=== PATIENT | female | born 1945 | race Caucasian/White ===

== ENCOUNTER → 2017-11-21 | Outpatient (CLI) | payer MEDICARE | LOC: M.RAD 10:23 | DX: Z12.31 Encounter for screening mammogram for malignant neoplasm of breast (principal) ==

== ENCOUNTER → 2019-01-21 | Outpatient (CLI) | payer MEDICARE | LOC: M.RAD 09:51 | DX: Z12.31 Encounter for screening mammogram for malignant neoplasm of breast (principal) ==

== ENCOUNTER 2019-08-30 14:08 | Inpatient (IN) | payer MEDICARE ==
[~2019-08-30] VITALS: Ht 172.7 cm; Wt 84.7 kg
[2019-08-30 14:17] VITALS: BP 149/72
[2019-08-30] MEDS ORDERED: CALCIUM 600 +1 EA17 PO (14:24)
[2019-08-30] MEDS ORDERED: MULTIVITAMINS1 EAC7 PO (14:24)
[2019-08-30] MEDS ORDERED: D3 DOTS2000 UNIT PO (14:25)
[2019-08-30] MEDS ORDERED: SERTRALINE HCL100 MG PO (14:25)
[2019-08-30] MEDS ORDERED: CLONAZEPAM 0.50.5 M1 PO (14:25)
[2019-08-30] MEDS ORDERED: PROBIOTIC1 EAC7 PO (14:25)
[2019-08-30] MEDS ORDERED: BUTALB-APAP-CA1 EACH PO (14:25)
[2019-08-30] MEDS ORDERED: PROTONIX40 M2 PO (14:25)
[2019-08-30] MEDS ORDERED: ZETIA10 MG PO (14:26)
[2019-08-30] MEDS ORDERED: SUMATRIPTAN SU100 MG PO (14:26)
[2019-08-30] MEDS ORDERED: FLONASE 0.05%50 MCG NARES (14:26)
[2019-08-30] MEDS ORDERED: PROAIR HFA8.5 GM INH (14:26)
[2019-08-30] MEDS ORDERED: CLARITIN-D 121 EAC1 PO (14:26)
[2019-08-30] MEDS ORDERED: ADVAIR 100-501 EACH INH (14:27)
[2019-08-30] MEDS ORDERED: SINGULAIR 10 MG10 MG PO (14:27)
[2019-08-30 14:39] LABS: ABSOLUTE BASOPHILS 0.1 thou/uL (0.0-0.2); ABSOLUTE EOSINOPHILS 0.3 thou/uL (0.0-0.7); ABSOLUTE LYMPHOCYTES 2.7 thou/uL (0.8-5.3); ABSOLUTE MONOCYTES 0.7 thou/uL (0.0-1.2); ABSOLUTE NEUTROPHILS 6.2 thou/uL (1.6-8.1); BASOPHILS 0.6 %; EOSINOPHILS 3.2 %; HEMOGLOBIN 12.2 gm/dL (12.0-15.0); LYMPHOCYTES 27.3 %; MCH 30.1 pg (26.0-34.0); MCHC 33.8 g/dL (28.0-37.0); MCV 89.2 fL (80.0-100.0); MONOCYTES 6.6 %; MPV 7.1 fl. (7.2-11.1); NUCLEATED RBCS 0 /100WBC; PLATELET COUNT* 367 thou/uL (150-400); POLYS 62.3 %; RBC 4.04 mil/uL (4.20-5.00); RDW-CV 13.6 % (10.5-14.5)
[2019-08-30 14:44] LABS: CALCIUM 9.3 mg/dL (8.5-10.1); POTASSIUM 3.5 mmol/L (3.5-5.1)
[2019-08-30 14:55] LABS: ALBUMIN 3.7 g/dL (3.4-5.0); MAGNESIUM 1.7 mg/dL (1.8-2.4); TOTAL BILIRUBIN 0.4 mg/dL (<0.1-1.0); TOTAL PROTEIN 6.9 g/dL (6.4-8.2)
[2019-08-30 17:33] VITALS: BP 147/71
[2019-08-30 18:25] VITALS: BP 146/63
--- NOTE | 2019-08-30 18:48 | NUR ---
PATIENT ARRIVED TO 225 PER CART THIS EVENING FROM ER. PATIENT IS ALERT AND ORIENTED X 4. SHE STATES HER PAIN IS A 3 TO 4 WITH DEEP BREATHS. PATIENT'S O2 SATS ARE WNL. PATIENT PLACED ON TELE MONITOR. TELE SHOWS NSR. PATIENT ORIENTED TO ROOM AND CALL LIGHT. INSTRUCTED ON FALL PROTOCAL. PATIENT IS RESTING AT THIS TIME. WILL REPORT TO DIE INSPECTOR.
[2019-08-30 20:00] VITALS: BP 144/79
[2019-08-31] VITALS: BP 149/94
[2019-08-31 04:00] VITALS: BP 132/55
--- NOTE | 2019-08-31 04:56 | NUR ---
ASSUMED CARE OF PT AFTER REPORT AT 1930. PT A&OX4. VSS. PHYSICAL ASSESSMENT COMPLETED AND CHARTED. PT COMPLAINED OF SOB AMD LEFT BACK PAIN RADIATING TO FRONT RIB-DR CAMPOS MADE AWARE WITH NEW ORDERS. PLACED PT ON O2 AT 2L NC. PT UPADLIB TO RESTROOM. PT ABLE TO SLEEP WELL ON BED. CALL LIGHT WITHIN REACH.
[2019-08-31 09:01] VITALS: BP 128/60
--- NOTE | 2019-08-31 11:30 | NUR ---
MET WITH PT TO DISCUSS HOME SITUATION/DC PLANNING. PT LIVES IN HOME WITH HER 97Y/O MOTHER WHO SHE CARES FOR PT. PT IS NORMALLY INDEPENDENT AND ACTIVE. HAD KNEE SURGERY IN PAST AND HAD HH WITH [facility] AND WENT TO OUTPT AT [facility]. PT DENIES ANY DC NEEDS AT THIS TIME. WAS ASKED BY TO CHECK ON XARELTO VS JAYLIN COST, CALLED INTO [facility] [address], AWAITING CALL BACK. [phone]
[2019-08-31 12:00] VITALS: BP 118/55
[2019-08-31 16:30] VITALS: BP 133/71
--- NOTE | 2019-08-31 16:56 | 2DMMODE ---
[place] [address] 2 D/M-MODE ECHOCARDIOGRAM Name: SERGIO WEAVER Room: [address] IN [facility]#: [id number] Admission: 08/30/19 Attend Phys: Dk Toussaint Discharge: Date of : 49 Date of Service: 08/31/19 1656 Report #: [id number] THIS REPORT FOR: //name// APPROVED REPORT Study performed: 08/31/2019 09:23:03 EXAM: Comprehensive 2D, Doppler, and color-flow Echocardiogram Patient Location: In-Patient Room #: [facility] BSA: 1.95 HR: 91 bpm BP: 132/55 mmHg Other Information Study Quality: Good Indications Pulmonary Embolism 2D Dimensions IVSd: 11.24 (7-11mm) LVOT Diam: 20.89 (18-24mm) LVDd: 36.11 mm PWd: 9.36 (7-11mm) Ascending Ao: 24.88 (22-36mm) LVDs: 22.27 (25-40mm) Aortic Root: 27.11 mm Volumes Left Atrial Volume (Systole) LA ESV Index: 11.30 mL/m2 Aortic Valve AoV Peak Melo.: 1.65 m/s AO Peak Gr.: 10.89 mmHg LVOT Max P.18 mmHg AO Mean Gr.: 5.86 mmHg LVOT Mean P.77 mmHg LVOT Max V: 1.43 m/s AO V2 VTI: 28.58 cm LVOT Mean V: 0.88 m/s MANAV (VTI): 3.01 cm2 LVOT V1 VTI: 25.07 cm Mitral Valve E/A Ratio: 0.81 MV Decel. Time: 223.77 ms MV E Max Melo.: 0.66 m/s MV PHT: 64.89 [place] [address] 2 D/M-MODE ECHOCARDIOGRAM Name: SERGIO WEAVER Room: [address] IN .R.#: [id number] Admission: 08/30/19 Attend Phys: Dk Toussaint Discharge: Date of : 49 Date of Service: 08/31/19 1656 Report #: [id number] MVA (PHT): 3.39 cm2 TDI E/Lateral E': 8.25 E/Medial E': 8.25 Medial E' Melo.: 0.08 m/s Lateral E' Melo.: 0.08 m/s Pulmonary Valve PV Peak Melo.: 1.32 m/s PV Peak Gr.: 6.94 mmHg Tricuspid Valve RAP Estimate: 5.00 mmHg TR Peak Gr.: 34.42 mmHg RVSP: 39.42 mmHg PA Pressure: 39.42 mmHg Left Ventricle The left ventricle is normal size. There is normal LV segmental wall motion. There is normal left ventricular wall thickness. Left ventricular systolic function is normal. The left ventricular ejection fraction is within the normal range. LVEF is 65%. Grade I - abnormal relaxation pattern. Right Ventricle The right ventricle is normal size. The right ventricular systolic function is normal. Atria The left atrium size is normal. The right atrium size is normal. Aortic Valve The aortic valve is normal in structure. No aortic regurgitation is present. There is no aortic valvular stenosis. Mitral Valve The mitral valve is normal in structure. There is no mitral valve regurgitation noted. No evidence of mitral valve stenosis. Tricuspid Valve The tricuspid valve is normal in structure. Mild tricuspid regurgitation. Pulmonic Valve The pulmonary valve is normal in structure. There is no pulmonic [place] [address] 2 D/M-MODE ECHOCARDIOGRAM Name: WEAVERSERGIO Daniele Room: [address] IN [facility]#: [id number] Admission: 08/30/19 Attend Phys: Dk Toussaint Discharge: Date of : 49 Date of Service: 08/31/19 1656 Report #: [id number] Great Vessels The aortic root is normal in size. IVC is normal in size and collapses >50% with inspiration. Pericardium There is no pericardial effusion. <Conclusion> The left ventricle is normal size. There is normal left ventricular wall thickness. Left ventricular systolic function is normal. The left ventricular ejection fraction is within the normal range. LVEF is 65%. Grade I - abnormal relaxation pattern. The right ventricle is normal size. The left atrium size is normal. The aortic valve is normal in structure. The mitral valve is normal in structure. The tricuspid valve is normal in structure. Mild tricuspid regurgitation. IVC is normal in size and collapses >50% with inspiration. There is no pericardial effusion. There is normal LV segmental wall motion. <ELECTRONICALLY SIGNED> By: Andi Martin MD, FACC 08/31/19 165 [id number] 55 Andi Martin MD, FACC /INF
--- NOTE | 2019-08-31 17:58 | EKG ---
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 08/31/19 1758 1415 1415 Shekhar Shahid MD, FACC /EPI
--- NOTE | 2019-08-31 18:19 | NUR ---
PT A&Ox4. VITALS STABLE. IV PATENT. UP AD DARON. SOME PAIN UNDER THE BREAST AND A HEADACHE, PARTIALLY CONTROLLED WITH MEDS. ON 2LOX. SR. EF OF 65%. DENIED N/V. CALL LIGHT WITHIN REACH. WILL CONTINUE TO MONITOR.
[2019-08-31 20:15] VITALS: BP 148/68
[2019-09-01] VITALS: BP 166/80
[2019-09-01 04:00] VITALS: BP 126/57
[2019-09-01 08:00] VITALS: BP 120/67
--- NOTE | 2019-09-01 10:21 | NUR ---
RECEIVED REPORT AND ASSUMED CARE AT 1900. VSS. CARDIAC MONITORING IN PLACE. PT DENIES COMPLAINTS OF PAIN. ASSESSMENT COMPLETED CHARTED. BED LOCKED IN LOWEST POSITION, CALL LIGHT WITHIN REACH. PT UP AD DARON, ON RA. HOURLY ROUNDING COMPLETED AND ALL NEEDS MET. NO ACUTE CHANGES THROUGH THE NIGHT.
--- NOTE | 2019-09-01 10:46 | NUR ---
MET WITH PT, DISCUSSED COST OF XARELTO/ELIQUIS PT AGREEABLE TO XARELTO, HAS TAKEN IT IN THE PAST. GAVE DISCOUNT CARD FOR 1ST MONTH SCRIPT. PT STATES FEELIHG IMPROVED, DENIES OTHER NEEDS
[2019-09-01] MEDS ORDERED: LEVAQUIN 500 M500 M3 PO (11:27)
[2019-09-01] MEDS ORDERED: XARELTO1 EACH PO (11:27)
[2019-09-01 11:35] VITALS: BP 120/67
[2019-09-01 11:42] VITALS: BP 122/72
--- NOTE | 2019-09-01 13:11 | NUR ---
IV AND TELE DISCONTINUED PT UNDERSTANDS ALL FOLLOW UP ORDERS. WILL DISCHARGE TO HOME.
== END 2019-09-01 13:20 | disposition home or self-care (01) | DRG 177 ==
LOC: M.ERS 14:08 → M.2W 16:31 → M.TBA-ER 16:31 → M.2W 17:43
PROVIDERS: Emergency Medicine Emergency Medical Services; ADMIT Internal Medicine
DX: J15.6 Pneumonia due to other Gram-negative bacteria (principal); I26.99 Other pulmonary embolism without acute cor pulmonale; J96.01 Acute respiratory failure with hypoxia; E78.00 Pure hypercholesterolemia, unspecified; G43.909 Migraine, unspecified, not intractable, without status migrainosus; K21.9 Gastro-esophageal reflux disease without esophagitis; J45.909 Unspecified asthma, uncomplicated; F41.9 Anxiety disorder, unspecified; F32.9 Major depressive disorder, single episode, unspecified; Z96.651 Presence of right artificial knee joint; Z79.899 Other long term (current) drug therapy; Z88.1 Allergy status to other antibiotic agents; Z88.2 Allergy status to sulfonamides

== ENCOUNTER → 2020-03-14 | Outpatient (CLI) | payer MEDICARE ==
[~2020-03-14] MED LIST: ADVAIR 100-501 EACH INH; BUTALB-APAP-CA1 EACH PO; CALCIUM 600 +1 EA17 PO; CLARITIN-D 121 EAC1 PO; CLONAZEPAM 0.50.5 M1 PO; D3 DOTS2000 UNIT PO; FLONASE 0.05%50 MCG NARES; LEVAQUIN 500 M500 M3 PO; MULTIVITAMINS1 EAC7 PO; PROAIR HFA8.5 GM INH; PROBIOTIC1 EAC7 PO; PROTONIX40 M2 PO; SERTRALINE HCL100 MG PO; SINGULAIR 10 MG10 MG PO; SUMATRIPTAN SU100 MG PO; XARELTO1 EACH PO; ZETIA10 MG PO
[2020-03-14 11:15] LABS: ALBUMIN 3.8 g/dL (3.4-5.0); ALKALINE PHOSPHATASE 68 U/L (46-116); ANION GAP 6 mmol/L (7-16); BUN 18 mg/dL (7-18); CALCIUM 9.2 mg/dL (8.5-10.1); CHLORIDE 102 mmol/L (98-107); CHOLESTEROL 221 mg/dL (<200); CO2 30 mmol/L (21-32); CREATININE 1.1 mg/dL (0.6-1.3); GLUCOSE 94 mg/dL (70-99); HDL CHOLESTEROL 81 mg/dL (>40); LDL CHOLESTEROL 103 mg/dL (<100); POTASSIUM 4.4 mmol/L (3.5-5.1); SERUM ASSESSMENT Clear; SGOT 25 U/L (15-37); SGPT 26 U/L (30-65); SODIUM 138 mmol/L (136-145); TC:HDL 2.7 Ratio (Not establshd); TOTAL BILIRUBIN 0.4 mg/dL (<0.1-1.0); TOTAL PROTEIN 7.1 g/dL (6.4-8.2); TRIGLYCERIDE 188 mg/dL (<150); VLDL 38 mg/dL (<40)
== END ==
LOC: M.LAB 10:30 → M.CT 11:00
PROVIDERS: Family Medicine
DX: E78.5 Hyperlipidemia, unspecified (principal); I26.99 Other pulmonary embolism without acute cor pulmonale

== ENCOUNTER → 2020-03-15 | Outpatient (CLI) | payer MEDICARE | LOC: M.CT 09:58 → M.LAB 09:58 → M.CT 11:30 | DX: J43.8 Other emphysema (principal); J98.4 Other disorders of lung; I26.99 Other pulmonary embolism without acute cor pulmonale ==

== ENCOUNTER → 2020-07-21 | Outpatient (CLI) | payer MEDICARE | LOC: M.RAD 14:03 | PROVIDERS: ATTEND Family Medicine | DX: Z12.31 Encounter for screening mammogram for malignant neoplasm of breast (principal); M81.0 Age-related osteoporosis without current pathological fracture; Z13.820 Encounter for screening for osteoporosis ==

== ENCOUNTER → 2021-08-08 | Outpatient (CLI) | payer MEDICARE | LOC: M.RAD 14:01 | PROVIDERS: ATTEND Family Medicine | DX: Z12.31 Encounter for screening mammogram for malignant neoplasm of breast (principal) ==

== ENCOUNTER 2021-08-24 10:43 | Inpatient (IN) | payer MEDICARE ==
[~2021-08-24] VITALS: Ht 172.7 cm; Wt 86.2 kg
[2021-08-24 11:09] VITALS: BP 142/77
[2021-08-24 14:14] LABS: HEMATOCRIT 41.7 % (37.0-47.0); HEMOGLOBIN 13.7 gm/dL (12.0-15.0); MCH 30.3 pg (26.0-34.0); MCHC 32.8 g/dL (28.0-37.0); MCV 92.3 fL (80.0-100.0); MPV 6.7 fl. (7.2-11.1); NUCLEATED RBCS 0 /100WBC; PLATELET COUNT* 310 thou/uL (150-400); RBC 4.52 mil/uL (4.20-5.00); RDW-CV 12.6 % (10.5-14.5); WBC 10.4 thou/uL (4.0-11.0)
[2021-08-24 14:22] LABS: CALCIUM 9.1 mg/dL (8.5-10.1); POTASSIUM 4.1 mmol/L (3.5-5.1)
[2021-08-24 14:26] LABS: ALBUMIN 3.3 g/dL (3.4-5.0); TOTAL BILIRUBIN 0.4 mg/dL (<0.1-1.0); TOTAL PROTEIN 6.6 g/dL (6.4-8.2)
[2021-08-24 14:48] LABS: ABSOLUTE BASOPHILS 0.2 thou/uL (0.0-0.2); ABSOLUTE EOSINOPHILS 0.5 thou/uL (0.0-0.7); ABSOLUTE LYMPHOCYTES 3.3 thou/uL (0.8-5.3); ABSOLUTE MONOCYTES 0.7 thou/uL (0.0-1.2); ABSOLUTE NEUTROPHILS 5.6 thou/uL (1.6-8.1); PLATELET ESTIMATE ADEQUATE
--- NOTE | 2021-08-24 15:35 | EKG ---
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1945 Requested By: Elian Grant Order Number: [id number] MD: Shekhar Shahid Measurements Intervals [place] Rate: 87 P: 83 [place]: 163 QRS: -28 QRSD: 113 T: 93 QT: 372 QTc: 448 Interpretive Statements Sinus rhythm Borderline intraventricular conduction delay Borderline repolarization abnormality Minimal ST elevation, anterior leads Compared to ECG 08/30/2019 14:15:21 Left ventricular hypertrophy no longer present Electronically Signed On 08-24-2021 15:35:14 CDT by Shekhar Shahid [email or web address] <ELECTRONICALLY SIGNED> By: Shekhar Shahid MD, FACC 08/24/21 1535 1452 1452 Shekhar Shhaid MD, FAC /EPI
[2021-08-24 19:45] VITALS: BP 152/71
[2021-08-24 20:09] VITALS: BP 144/72
[2021-08-25 00:46] VITALS: BP 120/64
[2021-08-25 04:28] LABS: HEMATOCRIT 36.4 % (37.0-47.0); MCH 30.3 pg (26.0-34.0); MCHC 32.9 g/dL (28.0-37.0); MCV 92.1 fL (80.0-100.0); RBC 3.95 mil/uL (4.20-5.00); RDW-CV 12.7 % (10.5-14.5); WBC 8.5 thou/uL (4.0-11.0)
[2021-08-25 04:45] VITALS: BP 149/80
[2021-08-25 04:45] LABS: CALCIUM 7.6 mg/dL (8.5-10.1); CREATININE 1.1 mg/dL (0.6-1.3); POTASSIUM 3.9 mmol/L (3.5-5.1)
--- NOTE | 2021-08-25 07:01 | NUR ---
PT IS ABLE TO COMMUNICATE HER NEEDS TO STAFF EFFECTIVELY. SHE HAS DENIED THE NEED FOR PAIN MEDICATION UP TO THIS TIME.
[2021-08-25 09:00] VITALS: BP 107/62
--- NOTE | 2021-08-25 10:23 | NUR ---
CM ASSESSMENT: PT A&O, INDEPENDENT WITH ADL'S, AND ACTIVE. PT RESIDES AT HOME AND HER MOTHER LIVES WITH HER. PT USES 0 DME. PT HAS PAST HX OF HH WITH [facility]. PT HAS 0 HX OF SNF. NO CM D/C PLANNING NEEDS ANTICIPATED AT THIS TIME. CM WILL REMAIN AVAILABLE TO ASSIST AND FOLLOW NEEDED.
[2021-08-25 12:00] VITALS: BP 128/59
--- NOTE | 2021-08-25 13:29 | 2DMMODE ---
[place] [address] 2 D/M-MODE ECHOCARDIOGRAM Name: WEAVERSERGIO K Room: [address] ADM IN M.R.#: [id number] Admission: 08/24/21 Attend Phys: Dk Toussaint Discharge: Date of : 49 Date of Service: 08/25/21 1329 Report #: [id number] THIS REPORT FOR: cc: Samir Worley MD, Bruce D. MD Blick, David R. MD [facility] ~ APPROVED REPORT Study performed: 08/25/2021 10:28:17 EXAM: Comprehensive 2D, Doppler, and color-flow Echocardiogram BSA: 1.95 HR: 82 bpm BP: 149/80 mmHg Other Information Study Quality: Adequate Indications Pulmonary Embolism 2D Dimensions IVSd: 12.75 (7-11mm) LVOT Diam: 17.93 (18-24mm) LVDd: 39.80 mm PWd: 10.06 (7-11mm) Ascending Ao: 27.08 (22-36mm) LVDs: 29.82 (25-40mm) Aortic Root: 28.62 mm Volumes Left Atrial Volume (Systole) LA ESV Index: 17.30 mL/m2 Aortic Valve AoV Peak Melo.: 1.35 m/s AO Peak Gr.: 7.34 mmHg LVOT Max P.15 mmHg AO Mean Gr.: 4.03 mmHg LVOT Mean P.69 mmHg LVOT Max V: 1.13 m/s AO V2 VTI: 23.83 cm LVOT Mean V: 0.76 m/s MANAV (VTI): 2.20 cm2 LVOT V1 VTI: 20.79 cm Mitral Valve E/A Ratio: 0.77 MV Decel. Time: 194.76 [place] [address] 2 D/M-MODE ECHOCARDIOGRAM Name: SERGIO WEAVER Room: [address] IN .R.#: [id number] Admission: 08/24/21 Attend Phys: Dk Toussaint Discharge: Date of : 49 Date of Service: 08/25/21 1329 Report #: [id number] MV E Max Melo.: 0.84 m/s MV PHT: 56.48 ms MVA (PHT): 3.90 cm2 TDI E/Lateral E': 12.00 E/Medial E': 12.00 Medial E' Melo.: 0.07 m/s Lateral E' Melo.: 0.07 m/s Pulmonary Valve PV Peak Melo.: 1.02 m/s PV Peak Gr.: 4.15 mmHg Tricuspid Valve RAP Estimate: 5.00 mmHg TR Peak Gr.: 37.35 mmHg RVSP: 42.35 mmHg PA Pressure: 42.35 mmHg Left Ventricle The left ventricle is normal size. There is normal LV segmental wall motion. There is normal left ventricular wall thickness. Left ventricular systolic function is normal. The left ventricular ejection fraction is within the normal range. LVEF is 55-60%. Grade I - abnormal relaxation pattern. Right Ventricle The right ventricle is normal size. The right ventricular systolic function is normal. Atria The left atrium size is normal. The right atrium size is normal. Aortic Valve The aortic valve is normal in structure. No aortic regurgitation is present. There is no aortic valvular stenosis. Mitral Valve The mitral valve is normal in structure. There is no mitral valve regurgitation noted. No evidence of mitral valve stenosis. Tricuspid Valve The tricuspid valve is normal in structure. Mild tricuspid regurgitation. estimated pa pressure 45 mm hg Pulmonic Valve The pulmonary valve is normal in structure. [place] [address] 2 D/M-MODE ECHOCARDIOGRAM Name: SERGIO WEAVER Room: [address] IN [facility]#: [id number] Admission: 08/24/21 Attend Phys: Dk Toussaint Discharge: Date of : 49 Date of Service: 08/25/21 1329 Report #: [id number] valvular regurgitation. Great Vessels The aortic root is normal in size. IVC is normal in size and collapses >50% with inspiration. Pericardium There is no pericardial effusion. <Conclusion> LVEF is 55-60%. Mild tricuspid regurgitation. estimated pa pressure 45 mm hg <ELECTRONICALLY SIGNED> By: Shkehar Shahid MD, FACC 08/25/211328 28 28 Shekhar Shahid MD, FACC /INF
[2021-08-25 17:42] VITALS: BP 118/57
[2021-08-25 20:44] VITALS: BP 128/66
[2021-08-26 00:22] VITALS: BP 135/76
--- NOTE | 2021-08-26 04:36 | NUR ---
PT IS ABLE TO COMMUNICATE HER NEEDS TO STAFF EFFECTIVELY. CURRENT PAIN MEDICATION REGIMEN HAS BEEN ADEQUATE FOR CONTROLLING HER PAIN UP TO THIS TIME. POSSIBLE DISCHARGE TODAY.
[2021-08-26] MEDS ORDERED: XARELTO15 MG PO (07:13)
[2021-08-26] MEDS ORDERED: XARELTO20 MG PO (07:13)
[2021-08-26 08:00] VITALS: BP 153/80
[2021-08-26 08:03] LABS: ABSOLUTE BASOPHILS 0.1 thou/uL (0.0-0.2); ABSOLUTE EOSINOPHILS 1.1 thou/uL (0.0-0.7); ABSOLUTE LYMPHOCYTES 2.6 thou/uL (0.8-5.3); ABSOLUTE MONOCYTES 0.7 thou/uL (0.0-1.2); ABSOLUTE NEUTROPHILS 5.6 thou/uL (1.6-8.1); BASOPHILS 0.6 %; EOSINOPHILS 10.7 %; HEMATOCRIT 37.6 % (37.0-47.0); HEMOGLOBIN 12.5 gm/dL (12.0-15.0); LYMPHOCYTES 25.8 %; MCH 30.7 pg (26.0-34.0); MCHC 33.3 g/dL (28.0-37.0); MCV 92.2 fL (80.0-100.0); MONOCYTES 7.2 %; MPV 7.5 fl. (7.2-11.1); NUCLEATED RBCS 0 /100WBC; PLATELET COUNT* 313 thou/uL (150-400); POLYS 55.7 %; RBC 4.08 mil/uL (4.20-5.00); RDW-CV 12.8 % (10.5-14.5); WBC 10.1 thou/uL (4.0-11.0)
[2021-08-26 08:22] LABS: ALBUMIN 2.9 g/dL (3.4-5.0); CREATININE 0.9 mg/dL (0.6-1.3); POTASSIUM 3.9 mmol/L (3.5-5.1); TOTAL BILIRUBIN 0.4 mg/dL (<0.1-1.0); TOTAL PROTEIN 5.9 g/dL (6.4-8.2)
[2021-08-26 09:53] VITALS: BP 153/80
== END 2021-08-26 10:50 | disposition home or self-care (01) | DRG 176 ==
LOC: M.ERS 10:43 → M.2W 15:39 → M.TBA-ER 15:39 → M.2W 20:16
PROVIDERS: Emergency Medicine; Family Medicine; Internal Medicine; ADMIT Internal Medicine; ATTEND Internal Medicine
DX: I26.99 Other pulmonary embolism without acute cor pulmonale (principal); Z20.822 Contact with and (suspected) exposure to COVID-19; Z96.653 Presence of artificial knee joint, bilateral; E78.00 Pure hypercholesterolemia, unspecified; K21.9 Gastro-esophageal reflux disease without esophagitis; J45.909 Unspecified asthma, uncomplicated; F32.9 Major depressive disorder, single episode, unspecified; F41.9 Anxiety disorder, unspecified; E78.5 Hyperlipidemia, unspecified; Z88.1 Allergy status to other antibiotic agents; Z88.2 Allergy status to sulfonamides; Z79.899 Other long term (current) drug therapy

== ENCOUNTER 2021-08-28 21:05 | Emergency (ER) | payer MEDICARE ==
[~2021-08-28] VITALS: Ht 172.7 cm; Wt 81.7 kg
[~2021-08-28 21:05] MED LIST changes: +XARELTO15 MG PO; +XARELTO20 MG PO
[2021-08-28 21:50] VITALS: BP 150/89
== END 2021-08-28 21:54 | disposition home or self-care (01) ==
LOC: M.ERS 21:05
DX: M25.562 Pain in left knee (principal); E78.00 Pure hypercholesterolemia, unspecified; G43.909 Migraine, unspecified, not intractable, without status migrainosus; K21.9 Gastro-esophageal reflux disease without esophagitis; J45.909 Unspecified asthma, uncomplicated; F41.9 Anxiety disorder, unspecified; F32.9 Major depressive disorder, single episode, unspecified; Z79.899 Other long term (current) drug therapy; Z90.89 Acquired absence of other organs; Z88.2 Allergy status to sulfonamides; Z91.041 Radiographic dye allergy status; Z88.1 Allergy status to other antibiotic agents